=== PATIENT | male | born 1995 | race Caucasian/White ===

== ENCOUNTER → 2018-03-24 | Outpatient (CLI) | payer BC ==
--- NOTE | 2018-03-24 11:50 | P.STRESS ---
- Stress Test Note Stress Test Results/Findings: Exam Performed: stress test Exam Date: 03/24/18 Reason for Exam: CHEST PAIN Height: 6 ft 2 in Weight: 80.739 kg Protocol: GABRIEL Stage: 6 Duration of Exercise: 15:30 Resting Heart Rate: 61 Resting Blood Pressure: 137/69 Maximum Achieved Heart Rate: 175 Maximum Achieved Blood Pressure: 199/66 85% PMHR: 170 100% PMHR: 200 METS: 15.7 Technologist Comment: Stress Test Results/Findings: Baseline heart is 61 beats a minute Baseline blood pressure 137 of 69 mmHg baseline 12 ECG shows sinus rhythm with normal NC interval early repolarization abnormalities inferolaterally Patient exercised on a Gabriel protocol for 15 minutes 30 seconds achieving a peak heart rate of 175 beats a minute normal blood pressure response to excise. Shortness of breath at peak exercise no chest pain No ECG evidence for ischemia no arrhythmias Impression Excellent exercise capacity without any ECG ohms for ischemia or arrhythmia
--- NOTE | 2018-03-24 12:40 | ECHOF ---
Referral Reason:R07.9 MEASUREMENTS -------- HEIGHT: 188.0 cm WEIGHT: 80.7 kg BP: 137/69 RVIDd: 3.0 cm (< 3.3) IVSd: 0.9 cm (0.6 - 1.1) LVIDd: 5.4 cm (3.9 - 5.3) LVPWd: 0.9 cm (0.6 - 1.1) IVSs: 1.3 cm LVIDs: 3.8 cm LVPWs: 1.3 cm LAESV Index (A-L): 24.88 ml/m Ao Diam: 3.2 cm (2.0 - 3.7) AV Cusp: 2.3 cm (1.5 - 2.6) LA Diam: 2.8 cm (2.7 - 3.8) EPSS: 1.0 cm MV E Pj: 0.60 m/s MV DecT: 342 ms MV A Pj: 0.40 m/s MV E/A Ratio: 1.52 RAP: 5.00 mmHg RVSP: 28.29 mmHg MV EF SLOPE: 169.18 mm/s (70 - 150) MV EXCURSION: 2.14 cm (> 18.000) FINDINGS -------- Sinus rhythm. This was a technically good study. The left ventricular size is normal. Left ventricular wall thickness is normal. Overall left vent ricular systolic function is normal with, an EF between 55 - 60 %. The right ventricle is normal in size and function. Normal LA size by volume 22+/-6 ml/m2. The right atrium is normal in size. The aortic valve is trileaflet, and appears structurally normal. No aortic stenosis or regurgitation. The mitral valve is normal. There is trace to mild mitral regurgitation. Trace tricuspid regurgitation present. Right ventricular systolic pressure is normal at < 35 mmHg. There is no evidence of pulmonary hypertension. Trace/mild (physiologic) pulmonic regurgitation. The aortic root size is normal. Normal inferior vena cava with normal inspiratory collapse consistent with estimated right atrial pre ssure of 5 mmHg. There is no pericardial effusion. CONCLUSIONS -------- 1. Sinus rhythm. 2. This was a technically good study. 3. The left ventricular size is normal. 4. Left ventricular wall thickness is normal. 5. Overall left ventricular systolic function is normal with, an EF between 55 - 60 %. 6. Normal LA size by volume 22+/-6 ml/m2. 7. The aortic valve is trileaflet, and appears structurally normal. No aortic stenosis or regurgitati on. 8. There is trace to mild mitral regurgitation. 9. Trace tricuspid regurgitation present. 10. Right ventricular systolic pressure is normal at < 35 mmHg. 11. There is no evidence of pulmonary hypertension. 12. Trace/mild (physiologic) pulmonic regurgitation. 13. The aortic root size is normal. 14. There is no pericardial effusion. BUILDING SERVICES COORDINATOR: Santy Rivera RDCS
--- NOTE | 2018-03-24 15:14 | EST ---
Stress Test Results/Findings: Exam Performed: stress test Exam Date: 03/24/18 Reason for Exam: CHEST PAIN Height: 6 ft 2 in Weight: 80.739 kg Protocol: GABRIEL Stage: 6 Duration of Exercise: 15:30 Resting Heart Rate: 61 Resting Blood Pressure: 137/69 Maximum Achieved Heart Rate: 175 Maximum Achieved Blood Pressure: 199/66 85% PMHR: 170 100% PMHR: 200 METS: 15.7 Technologist Comment: Stress Test Results/Findings: Baseline heart is 61 beats a minute Baseline blood pressure 137 of 69 mmHg baseline 12 ECG shows sinus rhythm with normal DC interval early repolarization abnormalities inferolaterally Patient exercised on a Gabriel protocol for 15 minutes 30 seconds achieving a peak heart rate of 175 beats a minute normal blood pressure response to excise. Shortness of breath at peak exercise no chest pain No ECG evidence for ischemia no arrhythmias Impression Excellent exercise capacity without any ECG ohms for ischemia or arrhythmia MTDD
== END ==
LOC: RADNMMAIN 10:39
PROVIDERS: ATTEND Internal Medicine
DX: R07.9 Chest pain, unspecified (principal)
CPT/HCPCS: 93017; 93306